=== PATIENT | male | born 1950 | race African-American/Black ===

== ENCOUNTER 2019-04-23 17:38 | Inpatient (IN) | payer BC, OTHER ==
[~2019-04-23] VITALS: Ht 172.7 cm; Wt 87.1 kg
--- NOTE | 2019-04-23 18:00 | NUR ---
Patient to ER bed 3 to gown for evaluation. Side rails up.
[2019-04-23] MEDS ORDERED: POTA10TA15 PO (18:01)
[2019-04-23] MEDS ORDERED: CARV3.1246 PO (18:01)
[2019-04-23] MEDS ORDERED: SPIR25TA PO (18:01)
[2019-04-23] MEDS ORDERED: TAMS-11 PO (18:01)
[2019-04-23] MEDS ORDERED: FURO-150 PO (18:01)
[2019-04-23 18:02] VITALS: BP_SYST 119
[2019-04-23] MEDS ORDERED: WARF3TAB PO (18:02)
--- NOTE | 2019-04-23 18:02 | NUR ---
pt arrives via acls for dizzness and flu like symtoms for approx one week. pt is aao x 4. Currentl c/o nausea. VSS. monitoring engineer placed.
--- NOTE | 2019-04-23 18:08 | NUR ---
ER at bedside examining patient.
[2019-04-23] MEDS ORDERED: KETOROLAC TROMETHAMINE 30 MG VIAL IVP ONE (18:15)
[2019-04-23] MEDS ORDERED: NACL 0.9% 1,000 ML IV ONE (18:15)
[2019-04-23] MEDS ORDERED: ONDANSETRON HCL 4 MG/2 ML VIAL IVP ONE (18:15)
--- NOTE | 2019-04-23 18:25 | NUR ---
medicated the pt w/ Zofran and Toradol per md order. Will reasssess
--- NOTE | 2019-04-23 18:36 | NUR ---
FLU SWAB COLLECTED AND SENT TO LAB
--- NOTE | 2019-04-23 18:50 | NUR ---
Medication reconciliation completed with information provided by pt. Any prior medication reconciliation on file was reviewed and corrected.
[2019-04-23 19:05] LABS: CALCIUM 8.3 mg/dL (8.4-11.0); CREATININE 1.34 mg/dL (0.55-1.30); POTASSIUM 3.9 mmol/L (3.5-5.1)
[2019-04-23 19:08] LABS: HEMATOCRIT 39.3 % (36-54); HEMOGLOBIN 12.9 g/dL (14.0-18.0); MEAN CORPUSCULAR HEMOGLOBIN 27 pg (27-31); MEAN CORPUSCULAR HGB CONC 33 % (32-36); MEAN CORPUSCULAR VOLUME 82 fL (79.0-98.0); PLATELET COUNT (AUTO) 115 K/uL (130-430); RED BLOOD CELL COUNT(AUTO) 4.77 MIL/uL (4.2-6.2); RED CELL DISTRIBUTION WIDTH 15.8 % (9.0-15.0); WHITE BLOOD COUNT (AUTO) 2.5 K/uL (4.8-10.8)
[2019-04-23 19:14] LABS: ALBUMIN 2.6 g/dL (3.4-4.8); TOTAL BILIRUBIN 0.8 mg/dL (0.0-1.0)
--- NOTE | 2019-04-23 19:20 | NUR ---
report given to Baljinder VILLEGAS
[2019-04-23 19:21] LABS: INR 1.3 (0.80-1.20); PROTHROMBIN TIME 12.7 SECS (9.5-12.5)
--- NOTE | 2019-04-23 19:30 | NUR ---
RECEIVED ASLEEP, AROUSABLE, CONFUSED. AFEBRILE, NOT IN ACUTE DISTRESS. NO PAIN OR DISCOMFORT NOTED. AWAITING DISPOSITION. VS ARE OTHERWISE STABLE.
--- NOTE | 2019-04-23 19:40 | NUR ---
PT. ADMITTED TO TELEMETRY UNIT FOR PNEUMONIA, INFLUENZA UNDER THE SERVICE OF . GAVE ADMITTING ORDERS.
[2019-04-23] MEDS ORDERED: VANCOMYCIN HCL 1,000 MG in NS 250 ML IV ONE (19:45)
[2019-04-23] MEDS ORDERED: TEMAZEPAM 15 MG CAPSULE PO PRN (20:00)
[2019-04-23] MEDS ORDERED: ONDANSETRON HCL 4 MG/2 ML VIAL IVP PRN (20:00)
[2019-04-23] MEDS ORDERED: METOCLOPRAMIDE HCL 10 MG/2 ML VIAL IVP PRN (20:00)
--- NOTE | 2019-04-23 20:01 | NUR ---
STATRTED ON LEVAQUIN 750 MG IVPB ORDERED.
[2019-04-23 20:17] LABS: BAND % (MANUAL) 3 % (0-6); BASOPHILS % (MANUAL) 0 % (0-2); EOSINOPHILS % (MANUAL) 0 % (0-7); LYMPHOCYTES % (MANUAL) 27 % (20-46); MONOCYTES % (MANUAL) 10 % (0-11)
--- NOTE | 2019-04-23 21:15 | NUR ---
ASLEEP, NOT IN ANY KIND OF DISTRESS. NO PAIN OR DISCOMFORT NOTED. VS REMAIN STABLE.
[2019-04-23] MEDS ORDERED: VANCOMYCIN HCL 1000 MG/VIAL IV ONE (21:44)
--- NOTE | 2019-04-23 22:50 | NUR ---
TRANSFERRED TO FLOOR VIA ACLS PROTOCOL STABLE. BEDSIDE REPORT GIVEN TO NURSE SILVER.PT. WENT TO ROOM 133-A. TRANSFER UNEVENTFUL.
--- NOTE | 2019-04-23 22:51 | NUR ---
ADMISSION NOTE Received patient from ER via kathy, received report from ROCK VILLEGAS. Patient admitted with diagnosis of PNEUMONIA, INFLUENZA. Patient oriented to hospital routine, call light, toileting and safety-patient verbalized understanding.
--- NOTE | 2019-04-23 22:51 | NUR ---
ADMISSION NOTE Received patient from ER via kathy, received report from NELLY ingram. Patient admitted with diagnosis of PNA, influenza. Patient oriented to hospital routine, call light, toileting and safety-patient verbalized understanding.
[2019-04-23] MEDS ORDERED: *LOVENOX 1MG/KG Q12H/PHARMACY XX ONE (23:00)
[2019-04-23] MEDS ORDERED: IPRATROPIUM/ALBUTEROL SULFATE 3 ML AMPUL.NEB (DUONEB) INH PRN (23:00)
[2019-04-23] MEDS ORDERED: ENOXAPARIN SODIUM 80 MG/0.8 ML SYRINGE SUBCUT SCH (23:00)
[2019-04-23] MEDS ORDERED: MORPHINE 2 MG/ML INJ. SYRINGE IVP PRN (23:00)
[2019-04-23] MEDS: OSELTAMIVIR PHOSPHATE 75 MG CAPSULE PO SCH (23:21)
--- NOTE | 2019-04-23 23:24 | NUR ---
MEDICATION PASS SCHEDULED TAMIFLU AND LOVENOX ADMINISTERED ORDERED. MEDICATIONS AND POTENTIAL SIDE EFFECTS EXPLAINED TO PT, PT VERBALIZED UNDERSTANDING. NO S/S OF DISTRESS. SAFETY PRECAUTIONS MAINTAINED. WILL MONITOR.
[2019-04-23 23:38] VITALS: BP_SYST 132
[2019-04-24] VITALS: BP_SYST 132
--- NOTE | 2019-04-24 01:15 | NUR ---
RN NOTE: PT ASSISTED TO SIT UP IN BED TO USE URINAL. SMALL AMOUNT OF URINE PRODUCED. PT ASSISTED TO LIE DOWN IN BED. NO S/S OF DISTRESS. SAFETY MAINTAINED. CALL LIGHT WITH PT. WILL MONITOR.
[2019-04-24 01:16] VITALS: BP_SYST 131
--- NOTE | 2019-04-24 02:09 | NUR ---
Consultation Paged Reason for Consultation: Elevated Troponin Was consult called: Y Person who was notified: Autumn Consulting Physician: Dr. Oh Operations Examiner Ordering Physician: Dr. Lawler
--- NOTE | 2019-04-24 03:20 | NUR ---
RESTING PT RESTING IN BED, NO S/S OF ACUTE DISTRESS, BREATHING IS EVEN AND UNLABORED TO ROOM AIR, NO SIGN OF PAIN OR DISCOMFORT. SAFETY PRECAUTIONS MAINTAINED. WILL MONITOR.
[2019-04-24 04:09] LABS: BASOPHILS % (AUTO) 0.5 % (0.0-2.0); EOSINOPHILS % (AUTO) 0.2 % (0.0-4.0); HEMATOCRIT 42.7 % (36-54); HEMOGLOBIN 13.8 g/dL (14.0-18.0); LYMPHOCYTES # (AUTO) 0.9 K/uL (1.0-5.5); LYMPHOCYTES % (AUTO) 26.1 % (20.5-51.5); MEAN CORPUSCULAR HEMOGLOBIN 27 pg (27-31); MEAN CORPUSCULAR HGB CONC 32 % (32-36); MEAN CORPUSCULAR VOLUME 84 fL (79.0-98.0); MONOCYTES # (AUTO) 0.3 K/uL (0.0-1.0); MONOCYTES % (AUTO) 9.4 % (1.7-9.3); NEUTROPHILS # (AUTO) 2.1 K/uL (1.8-7.7); NEUTROPHILS % (AUTO) 63.8 % (40.0-70.0); PLATELET COUNT (AUTO) 118 K/uL (130-430); RED BLOOD CELL COUNT(AUTO) 5.11 MIL/uL (4.2-6.2); RED CELL DISTRIBUTION WIDTH 15.7 % (9.0-15.0); WHITE BLOOD COUNT (AUTO) 3.3 K/uL (4.8-10.8)
[2019-04-24 04:28] LABS: ALBUMIN 2.5 g/dL (3.4-4.8); CALCIUM 8.3 mg/dL (8.4-11.0); CREATININE 1.24 mg/dL (0.55-1.30); POTASSIUM 4.1 mmol/L (3.5-5.1); TOTAL BILIRUBIN 0.7 mg/dL (0.0-1.0)
[2019-04-24] MEDS: INSULIN REGULAR, HUMAN 100 UNITS/ML, 10 ML VIAL (humuLIN R) SUBCUT PRN ×4 (06:02→21:48)
--- NOTE | 2019-04-24 06:02 | NUR ---
ACCUCHECK BLOOD SUGAR OF 197, PT REFUSED INSULIN AT THIS TIME STATING "MY BLOOD SUGAR DROPS REALLY FAST, I HAVEN'T EATEN IN 30 HOURS." PT EDUCATED REGARDING GLUCOSE CONTROL, PT VERBALIZED UNDERSTANDING BUT CONTINUED TO REFUSE. WILL MONITOR.
--- NOTE | 2019-04-24 06:45 | NUR ---
CLOSING NOTE PT RESTING IN BED, NO S/S OF ACUTE DISTRESS, BREATHING IS UNLABORED TO ROOM AIR, NO S/S OF PAIN OR DISCOMFORT. SAFETY AND DROPLET PRECAUTIONS HAVE BEEN IN PLACE THROUGHOUT SHIFT. ALL NEEDS MET. WILL ENDORSE TO ONCOMING DAY NURSE.
[2019-04-24 08:00] VITALS: BP_SYST 130
--- NOTE | 2019-04-24 08:00 | NUR ---
ASSUMPTION OF CARE: RECEIVED PT A/A/OX3-4, DX:INADEQUATE VENTILATION, R/T PNEUMONIA/INFLUENZA, VSS, BREATH SOUNDS ARE RHONCHI, BREATHING UNLABORED, AFEBRILE, NO C/O PAIN OR DISCOMFORT, IV SITE INTACT, PATENT, NO REDNESS OR SWELLING, REORIENTED TO UNIT AND CALL LIGHT, INSTRUCTED TO CALL FOR ASSIST BEFORE GETTING OOB, VERBALIZES UNDERSTANDING, URINAL, AND BEDSIDE TABLE PLACED WITHIN REACH, WILL CONT' TO MONITOR AND ASSESS.
--- NOTE | 2019-04-24 08:30 | NUR ---
VISIT: AT BEDSIDE FOR ASSESSMENT OF PT, NEW ORDERS GIVEN, WILL CONT' WITH POC.
[2019-04-24] MEDS ORDERED: APIXABAN 2.5 MG TABLET PO ONE (09:00)
[2019-04-24] MEDS ORDERED: CARVEDILOL 6.25 MG TABLET (COREG) PO ONE (09:00)
[2019-04-24] MEDS ORDERED: VANCOMYCIN HCL 2,000 MG in NS 500 ML IV ONE (09:00)
[2019-04-24] MEDS ORDERED: FUROSEMIDE 20 MG TABLET PO ONE (09:00)
[2019-04-24] MEDS ORDERED: CARVEDILOL 3.125 MG TABLET (COREG) PO SCH (09:00)
[2019-04-24] MEDS ORDERED: FUROSEMIDE 20 MG TABLET PO SCH (09:00)
--- NOTE | 2019-04-24 09:00 | NUR ---
BOOM PUMP OPERATOR: MORNING MEDS GIVEN, PER ORDERED BY Valente, TOLERATED WELL, NO CHANGES NOTED AT THIS TIME, WILL CONT' TO MONITOR AND ASSESS.
[2019-04-24] MEDS: ATORVASTATIN 20 MG TABLET PO SCH (09:12)
[2019-04-24] MEDS: SPIRONOLACTONE 25 MG TABLET (ALDACTONE) PO SCH (09:15)
[2019-04-24] MEDS: OSELTAMIVIR PHOSPHATE 75 MG CAPSULE PO SCH ×2 (09:15→21:46)
[2019-04-24] MEDS: TAMSULOSIN HCL 0.4 MG CAP PO SCH (09:17)
--- NOTE | 2019-04-24 09:48 | NUR ---
Nutrition Update Michael Scale 16 noted. Pt admitted for pneumonia, influenza. Diet: cardiac BMI: 29.4 kg/m2 RD to follow per nutrition care standards.
--- NOTE | 2019-04-24 11:30 | NUR ---
GLUCOSE MONITORING: BLOOD SUGAR PBAIU=598, 6 UNITS REGULAR INSULIN GIVEN SQ, TOLERATED WELL, WILL CONT' TO MONITOR AND ASSESS.
--- NOTE | 2019-04-24 12:30 | NUR ---
VISIT: AT BEDSIDE FOR ASSESSMENT OF PT, NEW ORDER GIVEN, WILL CONT' WITH POC.
[2019-04-24 12:46] VITALS: BP_SYST 128
--- NOTE | 2019-04-24 12:49 | NUR ---
ASSESSMENT AND PLAN: Urinary tract infection, increasing agitation, diabetes, seizure, anemia, schizoaffective disorder, hypercholesterolemia, hypertension, gastroesophageal reflux disease. Continue the patient on oxygen, bronchodilator treatments. Continue on gentle IV hydration. We will correct electrolyte abnormalities. Continue ADA diet and insulin sliding scale. Continue on anticoagulation. We will refer the patient to Psychiatry. We will continue to monitor the patient closely.
--- NOTE | 2019-04-24 12:50 | NUR ---
CONSULTATION PAGED/CALLED Reason for Consultation: [] PNA Person Who was Notified: [] PAGED DIRECTLY Consulting Physician: [] DR DUNN Bundle Wrapper Specialty: [] PULMO Ordering Physician: [] DR NARANJO
[2019-04-24] MEDS ORDERED: WARF10TA43 PO (13:36)
[2019-04-24] MEDS ORDERED: DIGO250T78 PO (13:36)
[2019-04-24] MEDS ORDERED: COR12.5 PO (13:36)
[2019-04-24] MEDS ORDERED: AMIO100T4 PO (13:36)
--- NOTE | 2019-04-24 15:00 | NUR ---
NURSES NOTES: PT REMAINS STABLE, NO S/S OF DISTRESS, NO C/O PAIN, NEEDS MET, CALL LIGHT PLACED WITHIN REACH, WILL CONT' TO MONITOR AND ASSESS.
[2019-04-24 16:30] VITALS: BP_SYST 104
[2019-04-24] MEDS ORDERED: WARFARIN SODIUM 3 MG TABLET PO SCH (18:00)
--- NOTE | 2019-04-24 18:00 | NUR ---
GLUCOSE MONITORING: BLOOD SUGAR XXSTI=585, 2 UNITS REGULAR INSULIN GIVEN SQ, TOLERATED WELL, WILL CONT' TO MONITOR AND ASSESS.
[2019-04-24 20:00] VITALS: BP_SYST 114
--- NOTE | 2019-04-24 20:00 | NUR ---
Pt was received lying in bed fully awake, alert and oriented x4. No c/o pain or discomfort and no acute distress noted at this time. Skin is warm and dry to touch. No signs or symptoms of hypoglycemia or hyperglycemia noted. Saline lock in LAC is without any signs of infiltration. Fall and safety precautions are in place.
[2019-04-24] MEDS: LEVOFLOXACIN 500 MG/D5W 100 ML IV SCH (21:45)
[2019-04-24] MEDS: CARVEDILOL 6.25 MG TABLET (COREG) PO SCH (21:46)
--- NOTE | 2019-04-24 21:48 | NUR ---
Accucheck 173 and 2 units Regular Insulin given SQ. Skin remains warm and dry to touch. Pt ate 1 cup of Jello for HS snack. Fall and safety precautions are in place.
[2019-04-24] MEDS: APIXABAN 2.5 MG TABLET PO SCH (21:50)
[2019-04-25] VITALS: BP_SYST 112
--- NOTE | 2019-04-25 00:30 | NUR ---
Pt is awake and sitting on the edge of his bed. No c/o pain or discomfort.
--- NOTE | 2019-04-25 02:30 | NUR ---
Pt is sleeping without any distress noted. Fall and safety precautions are in place.
--- NOTE | 2019-04-25 04:30 | NUR ---
Pt is sleeping comfortably in bed. Fall and safety precautions are in place.
[2019-04-25 05:59] LABS: INR 1.5 (0.80-1.20); PROTHROMBIN TIME 14.7 SECS (9.5-12.5)
[2019-04-25] MEDS ORDERED: DEXTROSE 50% JECT 50 ML DISP.SYRIN IVP PRN (06:00)
[2019-04-25] MEDS ORDERED: GLUCOSE 15 GM GEL (in 37.5 GM TUBE) PO PRN (06:00)
--- NOTE | 2019-04-25 06:05 | NUR ---
Accuchecks 69 and 66. Pt is fully awake and alert. Skin is warm and dry to touch. Pt declined oral Glucose gel. 1 amp D50W was given IVP. Pt was given 1 cup orange juice per his request.
[2019-04-25 06:06] LABS: ALBUMIN 2.4 g/dL (3.4-4.8); CALCIUM 8.3 mg/dL (8.4-11.0); CREATININE 1.13 mg/dL (0.55-1.30); POTASSIUM 3.7 mmol/L (3.5-5.1); TOTAL BILIRUBIN 0.6 mg/dL (0.0-1.0)
[2019-04-25] MEDS ORDERED: DEXTROSE 50% JECT 50 ML DISP.SYRIN ONE (06:20)
--- NOTE | 2019-04-25 06:20 | NUR ---
Accucheck 131 and skin remains warm and dry to touch. Fall and safety precautions are in place. All pt's needs were attended to. Will endorse to day shift nurse.
[2019-04-25 06:40] LABS: THYROID STIMULATING HORMONE 0.94 uIu/mL (0.36-3.74)
[2019-04-25 06:55] LABS: BASOPHILS % (AUTO) 0.9 % (0.0-2.0); EOSINOPHILS # (AUTO) 0.1 K/uL (0.0-0.4); EOSINOPHILS % (AUTO) 3.2 % (0.0-4.0); HEMATOCRIT 40.4 % (36-54); HEMOGLOBIN 13.2 g/dL (14.0-18.0); LYMPHOCYTES # (AUTO) 1.2 K/uL (1.0-5.5); LYMPHOCYTES % (AUTO) 38.2 % (20.5-51.5); MEAN CORPUSCULAR HEMOGLOBIN 27 pg (27-31); MEAN CORPUSCULAR HGB CONC 33 % (32-36); MEAN CORPUSCULAR VOLUME 82 fL (79.0-98.0); MONOCYTES # (AUTO) 0.5 K/uL (0.0-1.0); MONOCYTES % (AUTO) 17.8 % (1.7-9.3); NEUTROPHILS # (AUTO) 1.2 K/uL (1.8-7.7); NEUTROPHILS % (AUTO) 39.9 % (40.0-70.0); PLATELET COUNT (AUTO) 115 K/uL (130-430); RED BLOOD CELL COUNT(AUTO) 4.93 MIL/uL (4.2-6.2); RED CELL DISTRIBUTION WIDTH 15.7 % (9.0-15.0); WHITE BLOOD COUNT (AUTO) 3.1 K/uL (4.8-10.8)
[2019-04-25 08:05] VITALS: BP_SYST 122
[2019-04-25] MEDS: OSELTAMIVIR PHOSPHATE 75 MG CAPSULE PO SCH ×2 (09:03→20:47)
[2019-04-25] MEDS: CARVEDILOL 6.25 MG TABLET (COREG) PO SCH ×2 (09:03→20:46)
[2019-04-25] MEDS: ATORVASTATIN 20 MG TABLET PO SCH (09:03)
[2019-04-25] MEDS: SPIRONOLACTONE 25 MG TABLET (ALDACTONE) PO SCH (09:04)
[2019-04-25] MEDS: TAMSULOSIN HCL 0.4 MG CAP PO SCH (09:04)
[2019-04-25] MEDS: APIXABAN 2.5 MG TABLET PO SCH ×2 (09:05→20:49)
--- NOTE | 2019-04-25 09:05 | NUR ---
Routine Patient resting quietly in bed with no complain of pain or discomfort. Scheduled medications given per order. Patient stable at this time.
[2019-04-25] MEDS: FUROSEMIDE 20 MG TABLET PO SCH (09:06)
[2019-04-25] MEDS: VANCOMYCIN HCL 1,750 MG in NS 500 ML IV SCH (09:07)
--- NOTE | 2019-04-25 11:37 | NUR ---
Routine Checked blood sugar: 150 mg/dl - no coverage required. Patient resting comfortably in bed with no distress noted. Patient stable.
--- NOTE | 2019-04-25 11:55 | NUR ---
Patient taken to Radiology Dept for CT head.
[2019-04-25 12:00] VITALS: BP_SYST 125
--- NOTE | 2019-04-25 12:00 | NUR ---
REASON FOR CONSULTATION:[facility] WAS CONSULT CALLED?Y PERSON WHO WAS NOTIFIED:[facility] CONSULTING PHYSICIAN:ABDIRIZAK ASHLEY CLARK DRIVER SPECIALTY:NEURO CLARK DRIVER PHONE NUMBER:[phone] REQUESTING PHYSICIAN:KAYLYN JOHNSTON
--- NOTE | 2019-04-25 12:08 | NUR ---
DC PLANNING CHART REVIEWED, PATIENT LIVE WITH SPOUSE AT [facility]. ADLS INDEPENDENT, DME- NONE, TRANSPORTATION SON'S CAR, PRIMARY CONTACT- SMITH MYERS [phone]. DCP: HOME WITH SPOUSE. JCJason RN CM
--- NOTE | 2019-04-25 12:10 | NUR ---
Patient returned to unit in stable condition.
--- NOTE | 2019-04-25 15:16 | NUR ---
Dietitian Recommendations * Recommend cardiac, CCHO high carb-75 diet w/ Glucerna TID (ONS provides 660 kcal/day, 30 gm protein/day) LP, RD Please refer to Nutrition Assessment for details. Addendum: 04/25/19 at [address] Amended: Links added.
[2019-04-25 16:30] VITALS: BP_SYST 123
--- NOTE | 2019-04-25 18:03 | NUR ---
Routine Checked blood sugar: 167 mg/dl - covered per sliding scale; at bedside. Patient stable throughout shift.
[2019-04-25] MEDS: INSULIN REGULAR, HUMAN 100 UNITS/ML, 10 ML VIAL (humuLIN R) SUBCUT PRN ×2 (18:11→20:51)
[2019-04-25 19:00] VITALS: BP_SYST 129
--- NOTE | 2019-04-25 19:15 | NUR ---
change of shift.pt.presents isolation status;droplet;influenzae a+.pt.presents quiescent affect;calm,resting.general status stable.respiratory status stable;unlabored@room air.call light/telephone w/in reach of the pt.
--- NOTE | 2019-04-25 20:00 | NUR ---
pt.assessed.v/s assessed:values w/in normal limits.no c/o pain.nausea.i have apprised the pt.that i may provide snacks/beverages w/in the shift.no requests posited@this hour.general status stable;respiratory status stable;unlabored@room air:02-sat%=96%i inquired if the pt is ambulatory the pt.stated he cannot ambulate safely:lower extremity weakness.pt.utilizing the urinal w/in reach of the pt.call light/telephone w/in reach of the pt.
--- NOTE | 2019-04-25 20:30 | NUR ---
i have assessed the blood glucose:value;160mg dl. i have apprised the pt. of the value.
[2019-04-25] MEDS: LEVOFLOXACIN 500 MG/D5W 100 ML IV SCH (20:46)
--- NOTE | 2019-04-25 21:00 | NUR ---
2100p medications administered.i have administered insulin;regular:2-units.pt.had requested snacks/beverages.i have provided the food items.
--- NOTE | 2019-04-25 22:00 | NUR ---
pt.assessed.pt.presents quiescent affect;calm,resting.no c/o pain,nausea.i have attended to the urinal:measured/cleaned placed w/in reach of the pt.pt.capable to reposition self.general status stable.respiratory status stable;unlabored:02-sat%=96%.call light/telephone w/in reach of the pt.
--- NOTE | 2019-04-26 | NUR ---
pt.assessed,v/s assessed;values wnl.no c/o pain,nausea.i have attended to the urinal:measured/cleaned.placed w/in reach of the pt. pt.general status stable.respiratory status stable:02-sat%=96%.call light/telephone w/in reach of the pt.
[2019-04-26 00:15] VITALS: BP_SYST 113
--- NOTE | 2019-04-26 02:00 | NUR ---
pt.assessed.pt.presents quiescent affect;calm,somnolent.i have attended to the urinal;measured/cleaned placed w/in reach of the pt. general status stable.respiratory status stable;unlabored:02-SAT%=96%.call light/telephone w/in reach of the pt.
--- NOTE | 2019-04-26 04:00 | NUR ---
pt.assessed.pt.presents quiescent affect;awake;resting.i have attended to the urinal;measured/cleaned placed w/in reach of the pt.no c/o pain,nausea.pt.presents no requests posited@this hour.general status stable.respiratory status stable;unlabored.call light/telephone w/in reach of the pt.o2-sat%=96%.
--- NOTE | 2019-04-26 05:52 | NUR ---
pt.assessed.pt. prersents quiescent affect;calm resting no c/o pain,nausea.pt.requested a snack.i have provided jello x2 cups. i have assessed the blood glucose:value;103mg/dl.respiratory status stable;unlabored;02-st%=96%.I HAVE AtTEnded TO the URINAL/MEASURED/CLKENED PALCED W/IMN REaCH OF TH PT.CALL LiGHT/TELePHONE W/IN REACH OF THE PT.i have weighed the pt.2/t chf/lasix administration.
[2019-04-26 07:12] LABS: INR 1.5 (0.80-1.20); PROTHROMBIN TIME 14.6 SECS (9.5-12.5)
--- NOTE | 2019-04-26 07:50 | NUR ---
Report received from night team registered nurse. Patient awake and seated on bed with feet on the floor. Assist patient to restroom with walker at this time. Patient says he is feeling better. Everton Medina
[2019-04-26 09:38] VITALS: BP_SYST 137
[2019-04-26 10:00] VITALS: BP_SYST 137
--- NOTE | 2019-04-26 11:00 | NUR ---
Patient sister calls to inquire about his status. Discussion deferred to patient. Phone given to patient to discuss his healthcare. Everton Medina RN
[2019-04-26] MEDS: ATORVASTATIN 20 MG TABLET PO SCH (11:12)
[2019-04-26] MEDS: FUROSEMIDE 20 MG TABLET PO SCH (11:12)
[2019-04-26] MEDS: OSELTAMIVIR PHOSPHATE 75 MG CAPSULE PO SCH ×2 (11:12→20:50)
[2019-04-26] MEDS: VANCOMYCIN HCL 1,750 MG in NS 500 ML IV SCH (11:12)
[2019-04-26] MEDS: TAMSULOSIN HCL 0.4 MG CAP PO SCH (11:12)
[2019-04-26] MEDS: CARVEDILOL 6.25 MG TABLET (COREG) PO SCH ×2 (11:13→20:58)
[2019-04-26] MEDS: SPIRONOLACTONE 25 MG TABLET (ALDACTONE) PO SCH (11:13)
[2019-04-26] MEDS: APIXABAN 2.5 MG TABLET PO SCH ×2 (11:14→21:02)
[2019-04-26 12:00] VITALS: BP_SYST 120
--- NOTE | 2019-04-26 15:00 | NUR ---
Removal of intravenous catheter from 18 gauge in left antecubital site and insertion of 24 gauge in left forearm. Patient tolerates well. Intact 18 gauge catheter tip noted. Everton Medina
[2019-04-26 15:23] LABS: INR 1.3 (0.80-1.20); PROTHROMBIN TIME 13.3 SECS (9.5-12.5)
--- NOTE | 2019-04-26 16:50 | NUR ---
Patient visitor at bedside departs. Urinal and call balderrama within reach. Clear path and adequate lighting with bed to low position. Everton Medina RN Addendum: 04/26/19 at 1918 by [employer] utility bill complaints investigator clear path to restroom from patient bed
[2019-04-26 16:52] VITALS: BP_SYST 118
[2019-04-26] MEDS: INSULIN REGULAR, HUMAN 100 UNITS/ML, 10 ML VIAL (humuLIN R) SUBCUT PRN (18:04)
--- NOTE | 2019-04-26 19:07 | NUR ---
Tolerates one hundred percent of dinner well. Patient watching television. Even unlabored respirations. Pacing on monitor. Endorsement to night team registered nurse. Patient needs met. Everton Medina RN
[2019-04-26 19:55] VITALS: BP_SYST 117
[2019-04-26] MEDS: LEVOFLOXACIN 500 MG/D5W 100 ML IV SCH (21:28)
[2019-04-27 06:55] LABS: BASOPHILS % (AUTO) 0.7 % (0.0-2.0); EOSINOPHILS # (AUTO) 0.2 K/uL (0.0-0.4); EOSINOPHILS % (AUTO) 6.2 % (0.0-4.0); HEMOGLOBIN 13.6 g/dL (14.0-18.0); LYMPHOCYTES # (AUTO) 1.2 K/uL (1.0-5.5); LYMPHOCYTES % (AUTO) 31.9 % (20.5-51.5); MEAN CORPUSCULAR HEMOGLOBIN 27 pg (27-31); MEAN CORPUSCULAR HGB CONC 33 % (32-36); MEAN CORPUSCULAR VOLUME 82 fL (79.0-98.0); MONOCYTES # (AUTO) 0.5 K/uL (0.0-1.0); MONOCYTES % (AUTO) 13.7 % (1.7-9.3); NEUTROPHILS # (AUTO) 1.7 K/uL (1.8-7.7); NEUTROPHILS % (AUTO) 47.5 % (40.0-70.0); PLATELET COUNT (AUTO) 137 K/uL (130-430); RED BLOOD CELL COUNT(AUTO) 5.02 MIL/uL (4.2-6.2); RED CELL DISTRIBUTION WIDTH 15.8 % (9.0-15.0); WHITE BLOOD COUNT (AUTO) 3.7 K/uL (4.8-10.8)
[2019-04-27 07:17] LABS: INR 1.3 (0.80-1.20)
[2019-04-27 07:18] LABS: ALBUMIN 2.4 g/dL (3.4-4.8); CREATININE 1.18 mg/dL (0.55-1.30); POTASSIUM 3.4 mmol/L (3.5-5.1); TOTAL BILIRUBIN 0.6 mg/dL (0.0-1.0)
[2019-04-27 07:24] VITALS: BP_SYST 112
--- NOTE | 2019-04-27 07:50 | NUR ---
INITIAL NOTE RECEIVED PT IN BED, NO S/S OF DISTRESS OR SOB NOTED,PT HAS NO C/O PAIN AT THIS TIME, PT IN STABLE CONDITION, PT AAOX4, VERBAL, IV CATHETER PATENT, SALINE LOCK, NO SIGNS OF INFECTION OR INFILTRATION NOTED. BED AT LOWEST POSITION, CALL LIGHT WITHIN REACH, WILL CONTINUE TO MONITOR PT FOR ANY CHANGES, FALL AND SAFETY PRECAUTIONS IN PLACE. PT ON ISOLATION PRECAUTIONS. PT HAS BILATERAL SCD'S IN PLACE.
[2019-04-27] MEDS ORDERED: IPRA3AMP9 INH (08:48)
[2019-04-27] MEDS ORDERED: LIP20 PO (08:48)
[2019-04-27] MEDS ORDERED: APIX2.5T PO (08:48)
[2019-04-27] MEDS ORDERED: LACT1CAP72 PO (08:51)
[2019-04-27] MEDS ORDERED: METR500T PO (08:51)
[2019-04-27] MEDS ORDERED: LEVO500T89 PO (08:51)
[2019-04-27] MEDS ORDERED: VANCOMYCIN HCL 2,000 MG in NS 500 ML IV SCH (09:00)
[2019-04-27] MEDS: OSELTAMIVIR PHOSPHATE 75 MG CAPSULE PO SCH (09:38)
[2019-04-27] MEDS: SPIRONOLACTONE 25 MG TABLET (ALDACTONE) PO SCH (09:38)
[2019-04-27] MEDS: ATORVASTATIN 20 MG TABLET PO SCH (09:39)
[2019-04-27] MEDS: TAMSULOSIN HCL 0.4 MG CAP PO SCH (09:39)
[2019-04-27] MEDS: FUROSEMIDE 20 MG TABLET PO SCH (09:39)
[2019-04-27] MEDS: CARVEDILOL 6.25 MG TABLET (COREG) PO SCH (09:40)
[2019-04-27] MEDS: APIXABAN 2.5 MG TABLET PO SCH (09:40)
--- NOTE | 2019-04-27 10:00 | NUR ---
IV PLACEMENT: # 22 gauge angiocath placed to left ac. Use of asceptic technique. Opsite placed over site. Blood return noted.Flushed with 10 cc of normal saline. No evidence of infiltration noted. Patient tolerated. Removed iv catheter on left forearm, infiltrated, catheter intact, no bleeding noted, dressing in place.
--- NOTE | 2019-04-27 10:14 | NUR ---
Discharge Planning Received order for DC to SNF. Patient prefers to go home. Patient is ambulating with FWW and has and sons to assist at home. Agrees with home health. Received order for DC home with safety eval and PT. Phoned Laura Gil CM, direct number is [phone] f [phone]. Faxed patient information and order for HH. She will arrange and return call with name of agency. Addendum: 04/27/19 at 1024 by Aditi Fontaine LCSW Laura ESPINOZA arranged [facility] [phone]
--- NOTE | 2019-04-27 10:30 | NUR ---
ROUNDS PT IN BED, NO S/S OF DISTRESS OR SOB NOTED, PT HAS NO C/O PAIN AT THIS TIME, PT IN STABLE, PT RESTING COMFORTABLY, WILL CONTINUE TO MONITOR PT FOR ANY CHANGES.
[2019-04-27] MEDS: INSULIN REGULAR, HUMAN 100 UNITS/ML, 10 ML VIAL (humuLIN R) SUBCUT PRN (12:06)
[2019-04-27 12:49] VITALS: BP_SYST 125
--- NOTE | 2019-04-27 12:56 | NUR ---
ROUNDS PT IN BED, RESTING COMFORTABLY, NO S/S OF DISTRESS OR SOB NOTED, PT HAS NO C/O PAIN AT THIS TIME, PT IN STABLE CONDITION. WILL CONTINUE TO MONITOR PT FOR ANY CHANGES.
[2019-04-27 13:55] VITALS: BP_SYST 122
--- NOTE | 2019-04-27 14:26 | NUR ---
sD/C Patient Patient given medication reconciliation form and D/C instructions. Exit Care provided. Patient verbalized understanding. MD discussed with patient the results and treatment provided. Ambulatory with assist for discharge to home. Patient in stable condition, ID band removed. IV catheter removed, intact and dressing applied, no active bleeding. E-prescriptions sent to pharmacy. Patient educated on pain management. All belongings sent with patient.
--- NOTE | 2019-04-30 13:25 | NUR ---
SS NOTES/DISCHARGE FOLLOW UP CALL: SPEECH AND HEARING DIRECTOR phoned pt. Pt stated he is doing okay but was concern about his medication that Dr. Ramey had stopped while in the hospital. Dr. Ramey recommended to discontinue his comaudine and will have a replacement, but per pt he was never ordered for the replacement. SPEECH AND HEARING DIRECTOR provided patient Dr. Ramey's patient and encouraged for him to call MD now. Pt also has an appointment with PCP tomorrow and encouraged pt to bring discharge instructions and new/old meds. There was no hospice that contacted pt, called [facility] and sales and marketing representative stated pt never answered phone and will attempt to call pt today to schedule for assessment tomorrow. SPEECH AND HEARING DIRECTOR provided pt with SS phone number. SS will attempt to follow-up if HH was set up.
== END 2019-04-27 14:11 | disposition home health service (06) | DRG 871 ==
LOC: SED 17:38 → STU 19:52
PROVIDERS: ADMIT Internal Medicine Hospice and Palliative Medicine; ATTEND Internal Medicine Hospice and Palliative Medicine
DX: A41.9 Sepsis, unspecified organism (principal); J12.9 Viral pneumonia, unspecified; J10.08 Influenza due to other identified influenza virus with other specified pneumonia; I21.4 Non-ST elevation (NSTEMI) myocardial infarction; I13.0 Hypertensive heart and chronic kidney disease with heart failure and stage 1 through stage 4 chronic kidney disease, or unspecified chronic kidney disease; E87.1 Hypo-osmolality and hyponatremia; I42.0 Dilated cardiomyopathy; R79.1 Abnormal coagulation profile; I50.9 Heart failure, unspecified; E11.22 Type 2 diabetes mellitus with diabetic chronic kidney disease; R41.3 Other amnesia; D69.6 Thrombocytopenia, unspecified; R26.2 Difficulty in walking, not elsewhere classified; E11.40 Type 2 diabetes mellitus with diabetic neuropathy, unspecified; E11.65 Type 2 diabetes mellitus with hyperglycemia; N18.2 Chronic kidney disease, stage 2 (mild); Z83.3 Family history of diabetes mellitus; Z82.49 Family history of ischemic heart disease and other diseases of the circulatory system; Z86.73 Personal history of transient ischemic attack (TIA), and cerebral infarction without residual deficits; Z95.0 Presence of cardiac pacemaker; Z79.01 Long term (current) use of anticoagulants; Z79.899 Other long term (current) drug therapy
CPT/HCPCS: 36415; 70450-TC; 71045; 80053; 80061; 80202-TC; 82962; 83036; 83880; 84443-TC; 84484; 85007; 85025; 85027; 85610-TC; 85730-TC; 86710; 87040-TC; 93005; 93306; 94760; 99285; G0378; G9035; J1650; J1815; J1885; J1956; J2405; J3370; J7040; J7050

== ENCOUNTER 2021-05-19 10:10 | Inpatient (IN) | payer OTHER, SELFPAY ==
[~2021-05-19] VITALS: Ht 188 cm; Wt 70.8 kg
[~2021-05-19 10:10] MED LIST: AMIO100T4 PO; APIX2.5T PO; COR12.5 PO; DIGO250T2 PO; FURO-150 PO; IPRA3AMP9 INH; LACT1CAP72 PO; LEVO500T90 PO; LIP20 PO; METR500T PO; POTA10TA15 PO; SPIR25TA PO; TAMS-11 PO
[2021-05-19 10:13] VITALS: BP_SYST 92
[2021-05-19] MEDS ORDERED: ASPIRIN 81 MG TAB.CHEW PO ONE (10:30)
[2021-05-19] MEDS ORDERED: FINA5TAB3 PO (10:57)
[2021-05-19] MEDS ORDERED: SACU1TAB PO (10:57)
[2021-05-19] MEDS ORDERED: HYDR-3917 PO (10:57)
[2021-05-19] MEDS ORDERED: INSU100V9 SQ (10:57)
[2021-05-19] MEDS ORDERED: CYM30 PO (10:57)
[2021-05-19] MEDS ORDERED: GABA-533 PO (10:57)
[2021-05-19] MEDS ORDERED: INSU100V SQ (10:57)
[2021-05-19 11:15] LABS: HEMOGLOBIN 13.5 g/dL (14.0-18.0); MEAN CORPUSCULAR VOLUME 82 fL (79.0-98.0); MONOCYTES # (AUTO) 0.4 K/uL (0.0-1.0); WHITE BLOOD COUNT (AUTO) 6.7 K/uL (4.8-10.8)
[2021-05-19] MEDS ORDERED: NACL 0.9% 1,000 ML IV ONE (11:15)
[2021-05-19 11:17] LABS: BASOPHILS % (AUTO) 0.5 % (0.0-2.0); EOSINOPHILS % (AUTO) 0.4 % (0.0-4.0); LYMPHOCYTES % (AUTO) 15.2 % (20.5-51.5); MEAN CORPUSCULAR HEMOGLOBIN 27 pg (27-31); MEAN CORPUSCULAR HGB CONC 33 % (32-36); MONOCYTES % (AUTO) 5.8 % (1.7-9.3); NEUTROPHILS # (AUTO) 5.2 K/uL (1.8-7.7); NEUTROPHILS % (AUTO) 78.1 % (40.0-70.0); PLATELET COUNT (AUTO) 230 K/uL (130-430); RED BLOOD CELL COUNT(AUTO) 5.02 MIL/uL (4.2-6.2); RED CELL DISTRIBUTION WIDTH 15.1 % (9.0-15.0)
[2021-05-19 11:22] LABS: ANION GAP 14 (5-15); CALCIUM 9.2 mg/dL (8.4-11.0); CHLORIDE 97 mmol/L (98-107); CREATININE 1.91 mg/dL (0.55-1.30); GLUCOSE 149 mg/dL (70-99); POTASSIUM 3.8 mmol/L (3.5-5.1); SODIUM SERUM 135 mmol/L (136-145); UREA NITROGEN, BLOOD 21 mg/dL (8-21)
[2021-05-19 11:30] LABS: ALANINE AMINOTRANSFERASE 14 U/L (12-78); ALBUMIN 3.3 g/dL (3.4-4.8); ASPARTATE AMINOTRANSFERASE 18 U/L (10-37); TOTAL BILIRUBIN 0.3 mg/dL (0.0-1.0)
[2021-05-19 13:08] LABS: INR 1.2 (0.80-1.20); PROTHROMBIN TIME 11.6 SECS (9.5-12.5)
[2021-05-19 13:56] VITALS: BP_SYST 129
[2021-05-19 16:11] VITALS: BP_SYST 125
[2021-05-19 20:00] VITALS: BP_SYST 107
[2021-05-19] MEDS: INSULIN LISPRO SLIDING SCALE 100 UNITS/ML VIAL (humaLOG) SUBCUT PRN (20:39)
[2021-05-19] MEDS ORDERED: NALOXONE HCL 0.4 MG/ML AMP (NARCAN) IVP PRN ×3 (21:45→22:00)
[2021-05-19] MEDS ORDERED: HYDROcodone/ACETAMIN 5-325 MG TAB (NORCO/ VICODIN) PO PRN ×2 (21:45→22:00)
[2021-05-19] MEDS ORDERED: IPRATROPIUM/ALBUTEROL SULFATE 3 ML AMPUL.NEB (DUONEB) INH PRN (21:45)
[2021-05-19] MEDS ORDERED: INSULIN LISPRO SLIDING SCALE 100 UNITS/ML VIAL (humaLOG) SQ PRN (21:45)
[2021-05-19] MEDS: CARVEDILOL 12.5 MG TABLET (COREG) PO SCH (21:57)
[2021-05-19] MEDS ORDERED: GABAPENTIN 400 MG CAPSULE PO SCH (21:58)
[2021-05-19] MEDS ORDERED: HYDROcodone/ACETAMIN 10-325 MG TAB PO PRN (22:00)
[2021-05-19] MEDS ORDERED: ACETAMINOPHEN 325 MG TABLET PO PRN (22:00)
[2021-05-19] MEDS ORDERED: ONDANSETRON HCL 4 MG/2 ML VIAL IVP PRN (22:00)
[2021-05-19] MEDS ORDERED: LORazepam 2 MG/ML VIAL IVP PRN (22:00)
[2021-05-19] MEDS: SACUBITRIL/VALSARTAN 24 MG-26 MG 1 TABLET PO SCH (22:01)
[2021-05-19 22:17] VITALS: BP_SYST 125
[2021-05-19] MEDS ORDERED: CARVEDILOL 12.5 MG TABLET (COREG) ONE (22:45)
[2021-05-19] MEDS ORDERED: APIXABAN 2.5 MG TABLET ONE (22:45)
[2021-05-19] MEDS ORDERED: levoFLOXacin 250 MG TABLET ONE (22:47)
[2021-05-19] MEDS ORDERED: metroNIDAZOLE 500 MG TABLET PO ONE (23:00)
[2021-05-19] MEDS ORDERED: GABAPENTIN 400 MG CAPSULE PO ONE (23:00)
[2021-05-19] MEDS ORDERED: SACUBITRIL/VALSARTAN 24 MG-26 MG 1 TABLET PO ONE (23:00)
[2021-05-19] MEDS: NORMAL SALINE 5 ML DISP.SYRIN IVF SCH ×2 (23:06)
[2021-05-19] MEDS: APIXABAN 2.5 MG TABLET PO SCH (23:10)
[2021-05-19] MEDS: metroNIDAZOLE 500 MG TABLET PO SCH (23:11)
[2021-05-19] MEDS ORDERED: levoFLOXacin 500 MG TABLET ONE (23:25)
[2021-05-19] MEDS: levoFLOXacin 500 MG TABLET PO SCH (23:26)
[2021-05-20] VITALS: BP_SYST 102
[2021-05-20] MEDS: INSULIN LISPRO SLIDING SCALE 100 UNITS/ML VIAL (humaLOG) SUBCUT PRN ×4 (06:27→23:02)
[2021-05-20] MEDS: metroNIDAZOLE 500 MG TABLET PO SCH ×3 (06:27→22:22)
[2021-05-20] MEDS: NORMAL SALINE 5 ML DISP.SYRIN IVF SCH ×6 (06:29→22:14)
[2021-05-20 07:09] LABS: BASOPHILS # (AUTO) 0.1 K/uL (0.0-0.2); EOSINOPHILS # (AUTO) 0.1 K/uL (0.0-0.4); HEMATOCRIT 34.7 % (36-54); HEMOGLOBIN 11.6 g/dL (14.0-18.0); LYMPHOCYTES # (AUTO) 1.2 K/uL (1.0-5.5); LYMPHOCYTES % (AUTO) 19.8 % (20.5-51.5); MEAN CORPUSCULAR HEMOGLOBIN 27 pg (27-31); MEAN CORPUSCULAR HGB CONC 34 % (32-36); MEAN CORPUSCULAR VOLUME 80 fL (79.0-98.0); MONOCYTES # (AUTO) 0.6 K/uL (0.0-1.0); MONOCYTES % (AUTO) 9.3 % (1.7-9.3); NEUTROPHILS # (AUTO) 4.3 K/uL (1.8-7.7); NEUTROPHILS % (AUTO) 68.9 % (40.0-70.0); PLATELET COUNT (AUTO) 194 K/uL (130-430); RED BLOOD CELL COUNT(AUTO) 4.35 MIL/uL (4.2-6.2); RED CELL DISTRIBUTION WIDTH 15.4 % (9.0-15.0); WHITE BLOOD COUNT (AUTO) 6.3 K/uL (4.8-10.8)
[2021-05-20 08:09] VITALS: BP_SYST 105
[2021-05-20 08:11] LABS: ALANINE AMINOTRANSFERASE 11 U/L (12-78); ALBUMIN 2.8 g/dL (3.4-4.8); ANION GAP 12 (5-15); ASPARTATE AMINOTRANSFERASE 13 U/L (10-37); CALCIUM 8.5 mg/dL (8.4-11.0); CHLORIDE 101 mmol/L (98-107); CREATININE 1.53 mg/dL (0.55-1.30); GLUCOSE 188 mg/dL (70-99); PHOSPHORUS 2.7 mg/dL (2.7-4.5); POTASSIUM 3.1 mmol/L (3.5-5.1); SODIUM SERUM 137 mmol/L (136-145); TOTAL BILIRUBIN 0.5 mg/dL (0.0-1.0); UREA NITROGEN, BLOOD 18 mg/dL (8-21)
[2021-05-20] MEDS: FINASTERIDE 5 MG TABLET (PROSCAR) PO SCH (10:26)
[2021-05-20] MEDS: GABAPENTIN 300 MG CAPSULE PO SCH ×2 (10:26→22:12)
[2021-05-20] MEDS: TAMSULOSIN HCL 0.4 MG CAP PO SCH (10:26)
[2021-05-20] MEDS: FUROSEMIDE 20 MG TABLET PO SCH (10:28)
[2021-05-20] MEDS: DULoxetine HCL 30 MG CAPSULE.DR (CYMBALTA) PO SCH (10:29)
[2021-05-20] MEDS: ATORVASTATIN 20 MG TABLET PO SCH (10:29)
[2021-05-20] MEDS: AMIODARONE HCL 200 MG TABLET PO SCH (10:29)
[2021-05-20] MEDS: LACTOBACILLUS RHAMNOSUS GG 1 CAP CAPSULE PO SCH (10:30)
[2021-05-20] MEDS: SPIRONOLACTONE 25 MG TABLET (ALDACTONE) PO SCH (10:30)
[2021-05-20] MEDS: CARVEDILOL 12.5 MG TABLET (COREG) PO SCH ×2 (10:30→22:22)
[2021-05-20] MEDS: POTASSIUM CHLORIDE 10 MEQ TAB.PRT.SR PO SCH (10:31)
[2021-05-20] MEDS: DIGOXIN 0.25 MG TABLET PO SCH (10:31)
[2021-05-20] MEDS: APIXABAN 2.5 MG TABLET PO SCH ×2 (10:33→22:39)
[2021-05-20] MEDS: SACUBITRIL/VALSARTAN 24 MG-26 MG 1 TABLET PO SCH ×2 (10:36→21:00)
[2021-05-20 10:43] LABS: FREE T4 (FREE THYROXINE) 1.5 ng/dl (0.8-1.5); THYROID STIMULATING HORMONE 0.21 uIu/mL (0.36-3.74)
[2021-05-20 12:30] VITALS: BP_SYST 118; BP_SYST 153
[2021-05-20 16:17] VITALS: BP_SYST 121
[2021-05-20] MEDS ORDERED: INSULIN GLARGINE 100 UNITS/ML 10 ML VIAL SQ SCH (21:00)
[2021-05-20] MEDS: levoFLOXacin 500 MG TABLET PO SCH (22:12)
[2021-05-20 23:19] VITALS: BP_SYST 101
[2021-05-21] VITALS: BP_SYST 110
[2021-05-21] MEDS: metroNIDAZOLE 500 MG TABLET PO SCH (06:01)
[2021-05-21] MEDS: NORMAL SALINE 5 ML DISP.SYRIN IVF SCH ×3 (06:01→12:08)
[2021-05-21] MEDS: INSULIN LISPRO SLIDING SCALE 100 UNITS/ML VIAL (humaLOG) SUBCUT PRN ×2 (06:13→12:14)
[2021-05-21 08:36] VITALS: BP_SYST 138
[2021-05-21] MEDS: LACTOBACILLUS RHAMNOSUS GG 1 CAP CAPSULE PO SCH (09:04)
[2021-05-21] MEDS: APIXABAN 2.5 MG TABLET PO SCH (09:04)
[2021-05-21] MEDS: DULoxetine HCL 30 MG CAPSULE.DR (CYMBALTA) PO SCH (09:05)
[2021-05-21] MEDS: FINASTERIDE 5 MG TABLET (PROSCAR) PO SCH (09:05)
[2021-05-21] MEDS: SPIRONOLACTONE 25 MG TABLET (ALDACTONE) PO SCH (09:05)
[2021-05-21] MEDS: TAMSULOSIN HCL 0.4 MG CAP PO SCH (09:06)
[2021-05-21] MEDS: CARVEDILOL 12.5 MG TABLET (COREG) PO SCH (09:06)
[2021-05-21] MEDS: DIGOXIN 0.25 MG TABLET PO SCH (09:07)
[2021-05-21] MEDS: FUROSEMIDE 20 MG TABLET PO SCH (09:07)
[2021-05-21] MEDS: AMIODARONE HCL 200 MG TABLET PO SCH (09:08)
[2021-05-21] MEDS: POTASSIUM CHLORIDE 10 MEQ TAB.PRT.SR PO SCH (09:08)
[2021-05-21] MEDS: GABAPENTIN 300 MG CAPSULE PO SCH (09:09)
[2021-05-21] MEDS: ATORVASTATIN 20 MG TABLET PO SCH (09:09)
[2021-05-21] MEDS ORDERED: POTASSIUM CHLORIDE 20 MEQ TAB.PRT.SR PO ONE (10:00)
[2021-05-21 10:53] LABS: ANION GAP 9 (5-15); CALCIUM 9.2 mg/dL (8.4-11.0); CHLORIDE 102 mmol/L (98-107); CREATININE 1.52 mg/dL (0.55-1.30); GLUCOSE 227 mg/dL (70-99); SODIUM SERUM 139 mmol/L (136-145); UREA NITROGEN, BLOOD 16 mg/dL (8-21)
[2021-05-21] MEDS ORDERED: FURO-150 PO (11:50)
[2021-05-21] MEDS: SACUBITRIL/VALSARTAN 24 MG-26 MG 1 TABLET PO SCH (12:18)
[2021-05-21 13:01] VITALS: BP_SYST 127
[2021-05-21 13:36] VITALS: BP_SYST 127
[2021-05-22] MEDS ORDERED: TAMSULOSIN HCL 0.4 MG CAP PO SCH (09:00)
[2021-05-22] MEDS ORDERED: FUROSEMIDE 20 MG TABLET PO SCH (09:00)
== END 2021-05-21 14:40 | disposition home or self-care (01) | DRG 73 ==
LOC: SED 10:10 → STU 12:48
PROVIDERS: ADMIT Internal Medicine Hospice and Palliative Medicine; ATTEND Internal Medicine Hospice and Palliative Medicine
PROC: 4B02XTZ Measurement of Cardiac Defibrillator, External Approach (ICD-10-PCS; principal; 2021-05-21)
DX: G90.8 Other disorders of autonomic nervous system (principal); N17.0 Acute kidney failure with tubular necrosis; I42.0 Dilated cardiomyopathy; E11.42 Type 2 diabetes mellitus with diabetic polyneuropathy; E78.00 Pure hypercholesterolemia, unspecified; N40.0 Benign prostatic hyperplasia without lower urinary tract symptoms; I11.0 Hypertensive heart disease with heart failure; I50.9 Heart failure, unspecified; F32.A Depression, unspecified; E87.6 Hypokalemia; I48.91 Unspecified atrial fibrillation; E11.29 Type 2 diabetes mellitus with other diabetic kidney complication; Z20.822 Contact with and (suspected) exposure to COVID-19; Z95.810 Presence of automatic (implantable) cardiac defibrillator; Z79.2 Long term (current) use of antibiotics; Z79.01 Long term (current) use of anticoagulants; Z79.4 Long term (current) use of insulin; Z79.899 Other long term (current) drug therapy; Z88.0 Allergy status to penicillin
CPT/HCPCS: 36415; 70450-TC; 71045; 76376; 80048; 80053; 82962; 83735; 83880; 84100; 84439; 84443; 84484; 85025; 85379; 85610-TC; 85730-TC; 93306; 93880; 96360; 96361; 99285; G0378

== ENCOUNTER 2021-12-12 23:54 | Inpatient (IN) | payer OTHER ==
[~2021-12-12] VITALS: Ht 185.4 cm; Wt 95.8 kg
[~2021-12-12 23:54] MED LIST changes: +CYM30 PO; +FINA5TAB3 PO; +GABA-533 PO; +HYDR-3917 PO; +INSU100V SQ; +INSU100V9 SQ; +LEVO-62 PO; -LEVO500T90 PO; +SACU1TAB PO
--- NOTE | 2021-12-13 | NUR ---
PATIENT BIBA FOR C/O ALTERED. PATIENT'S INITIAL BLOOD SUGAR ON-SCENE WAS 49. FAMILY STATES THAT THEY SAW PATIENT TAKE INSULIN BUT UNSURE IF HE ATE ANYTHING AFTERWARD. INITIAL INSULIN AT HOSPITAL, 34. PATIENT GIVEN ORANGE JUICE AND PLACED IN BED [address] GOLDBERG AT BEDSIDE.
--- NOTE | 2021-12-13 00:04 | NUR ---
ER at bedside examining patient.
--- NOTE | 2021-12-13 00:05 | NUR ---
# 20 gauge angiocath placed to right hand. Use of asceptic technique. Opsite placed over site. Blood return noted. Blood for lab drawn from site. Flushed with 10 cc of normal saline. No evidence of infiltration noted. Patient tolerated well.
[2021-12-13 00:07] VITALS: BP_SYST 136
--- NOTE | 2021-12-13 00:10 | NUR ---
Urine collected and sent to lab.
[2021-12-13] MEDS: D10W 1,000 ML IV SCH ×3 (00:15→20:00)
--- NOTE | 2021-12-13 00:19 | NUR ---
X-Ray being done at bedside.
[2021-12-13 00:26] LABS: BASOPHILS # (AUTO) 0.1 K/uL (0.0-0.2); BASOPHILS % (AUTO) 0.9 % (0.0-2.0); EOSINOPHILS % (AUTO) 0.6 % (0.0-4.0); HEMATOCRIT 41.5 % (36-54); LYMPHOCYTES # (AUTO) 1.1 K/uL (1.0-5.5); LYMPHOCYTES % (AUTO) 14.4 % (20.5-51.5); MEAN CORPUSCULAR HEMOGLOBIN 26 pg (27-31); MEAN CORPUSCULAR HGB CONC 34 % (32-36); MEAN CORPUSCULAR VOLUME 78 fL (79.0-98.0); MONOCYTES # (AUTO) 0.6 K/uL (0.0-1.0); MONOCYTES % (AUTO) 7.8 % (1.7-9.3); NEUTROPHILS # (AUTO) 6.1 K/uL (1.8-7.7); NEUTROPHILS % (AUTO) 76.3 % (40.0-70.0); PLATELET COUNT (AUTO) 185 K/uL (130-430); RED BLOOD CELL COUNT(AUTO) 5.31 MIL/uL (4.2-6.2); RED CELL DISTRIBUTION WIDTH 16.7 % (9.0-15.0); WHITE BLOOD COUNT (AUTO) 7.9 K/uL (4.8-10.8)
--- NOTE | 2021-12-13 00:27 | NUR ---
EKG performed at by Ashley VILLEGAS. Physician given copy of EKG for review.
[2021-12-13 00:38] LABS: ANION GAP 14 (5-15); CALCIUM 9.6 mg/dL (8.4-11.0); CHLORIDE 103 mmol/L (98-107); CREATININE 1.13 mg/dL (0.55-1.30); GLUCOSE 60 mg/dL (70-99); UREA NITROGEN, BLOOD 16 mg/dL (8-21)
[2021-12-13 00:40] LABS: BILIRUBIN,URINE NEGATIVE (NEGATIVE); BLOOD, URINE 1+ (NEGATIVE); CLARITY/URINE CLEAR (CLEAR); COLOR,URINE YELLOW (YELLOW); GLUCOSE,URINE 3+ (NEGATIVE); KETONES,URINE NEGATIVE (NEGATIVE); LEUKOCYTE ESTERASE ,URINE NEGATIVE (NEGATIVE); NITRITE, URINE NEGATIVE (NEGATIVE); PH,URINE 5.5 (5.0-8.0); PROTEIN URINE TRACE (NEGATIVE); UROBILINOGEN,URINE 0.2 (0.2-1.0)
[2021-12-13 00:44] LABS: ALANINE AMINOTRANSFERASE 13 U/L (12-78); ALBUMIN 3.9 g/dL (3.4-4.8); ASPARTATE AMINOTRANSFERASE 26 U/L (10-37); TOTAL BILIRUBIN 0.4 mg/dL (0.0-1.0)
--- NOTE | 2021-12-13 00:50 | NUR ---
Covid swab done and sent to lab.
[2021-12-13 00:56] LABS: BACTERIA,URINE None Seen /HPF (None Seen); HYALINE CASTS, URINE 0-10 /LPF (None Seen); MUCUS,URINE 1+ /LPF (None Seen); RBC,URINE 0-3 /HPF (0-3); WBC,URINE NONE SEEN /HPF (0-3)
[2021-12-13] MEDS ORDERED: NACL 0.9% 2,700 ML IV ONE (01:00)
[2021-12-13] MEDS ORDERED: cefTRIAXone 1 GM IVPB PREMIX 50 ML IV ONE (01:00)
--- NOTE | 2021-12-13 01:27 | NUR ---
# 22 gauge angiocath placed to left wrist. Use of asceptic technique. Opsite placed over site. Blood return noted. Flushed with 10 cc of normal saline. No evidence of infiltration noted. Patient tolerated well.
--- NOTE | 2021-12-13 02:10 | NUR ---
vacuum technician at bedside.
--- NOTE | 2021-12-13 02:49 | NUR ---
[facility] number is [phone].
--- NOTE | 2021-12-13 04:42 | NUR ---
Pt in bed resting with no s/s of distress. Pt is A&Ox4. Skin intact. VSS. Still currently waiting for Dr. Ornelas to call back for admission orders.
--- NOTE | 2021-12-13 05:00 | NUR ---
Admit bed requested Patient will be admitted to care of . Admitted to MedSurg unit. Diagnosis Hypoglycemia Inpatient (Yes or No) Yes Observation (Yes or No) No Orientation concerns or request close to nursing station (Yes or No) No Covid Status Negative On vent or bipap No Isolation requirements No Needs a sitter No From Home (Yes or if No enter name of facility) Yes Requires Dialysis (Yes or No) No Med Rec Completed (Yes of No) Yes
--- NOTE | 2021-12-13 06:08 | NUR ---
Patient will be admitted to care of Dr. Ornelas. Admitted to MedSurg unit. Will go to room 106A. Belongings list completed. Complete and up to date summary report printed. SBAR report to be given at bedside with opportunity for questions.
[2021-12-13 06:52] VITALS: BP_SYST 137
[2021-12-13 18:30] VITALS: BP_SYST 124
--- NOTE | 2021-12-13 19:25 | NUR ---
[facility] IS HERE TO PICK THE PT UP. PT IS ABLE TO AMBULATE SAFELY. ALERT AND ORIENTED X4. DENIES ANY PAIN OR DIZZINESS. EDUCATED PT ABOUT THE IMPORTANCE OF CHECKING HIS BLOOD SUGAR BEFORE EACH INSULIN ADMINISTRATION. PT VERBALIZED UNDERSTANDING. PT WILL F/U WITH PCP IN 1 WEEK. STABLE AT DISCHARGE.
--- NOTE | 2021-12-14 08:22 | NUR ---
Dispo code 01
== END 2021-12-13 19:50 | disposition home or self-care (01) | DRG 640 ==
LOC: SED 23:54 → SMU 12-13 05:01
PROVIDERS: ADMIT Internal Medicine; ATTEND Internal Medicine
DX: E16.2 Hypoglycemia, unspecified (principal); G93.41 Metabolic encephalopathy; E87.20 Acidosis, unspecified; Z20.822 Contact with and (suspected) exposure to COVID-19; Z88.0 Allergy status to penicillin
CPT/HCPCS: 36415; 71045; 80053; 81000; 82962; 83605; 85025; 87040; 93005; 96365; 96367; 99291; J0696; J1956; J7040

== ENCOUNTER 2022-06-28 14:27 | Inpatient (IN) | payer OTHER ==
[~2022-06-28] VITALS: Ht 185.4 cm; Wt 96.6 kg
[2022-06-28 14:27] VITALS: BP_SYST 143
[~2022-06-28 14:27] MED LIST changes: -AMIO100T4 PO; +CHOL500052 PO; -CYM30 PO; -FURO-150 PO; +FURO80TA86 PO; -HYDR-3917 PO; -IPRA3AMP9 INH; -LACT1CAP72 PO; -LEVO-62 PO; +LIP10 PO; -LIP20 PO; -METR500T PO; -POTA10TA15 PO
[2022-06-28 15:23] LABS: BASOPHILS # (AUTO) 0.1 K/uL (0.0-0.2); BASOPHILS % (AUTO) 0.9 % (0.0-2.0); EOSINOPHILS # (AUTO) 0.5 K/uL (0.0-0.4); EOSINOPHILS % (AUTO) 4.9 % (0.0-4.0); HEMATOCRIT 38.8 % (36-54); HEMOGLOBIN 12.8 g/dL (14.0-18.0); LYMPHOCYTES # (AUTO) 0.8 K/uL (1.0-5.5); LYMPHOCYTES % (AUTO) 8.8 % (20.5-51.5); MEAN CORPUSCULAR HEMOGLOBIN 26 pg (27-31); MEAN CORPUSCULAR HGB CONC 33 % (32-36); MEAN CORPUSCULAR VOLUME 79 fL (79.0-98.0); MONOCYTES # (AUTO) 0.6 K/uL (0.0-1.0); MONOCYTES % (AUTO) 6.8 % (1.7-9.3); NEUTROPHILS # (AUTO) 7.3 K/uL (1.8-7.7); NEUTROPHILS % (AUTO) 78.6 % (40.0-70.0); PLATELET COUNT (AUTO) 167 K/uL (130-430); RED CELL DISTRIBUTION WIDTH 17.3 % (9.0-15.0); WHITE BLOOD COUNT (AUTO) 9.3 K/uL (4.8-10.8)
[2022-06-28 15:54] LABS: ANION GAP 10 (5-15); CALCIUM 8.6 mg/dL (8.4-11.0); CHLORIDE 105 mmol/L (98-107); CREATININE 1.33 mg/dL (0.55-1.30); GLUCOSE 68 mg/dL (70-99); UREA NITROGEN, BLOOD 17 mg/dL (8-21)
[2022-06-28 16:04] LABS: BILIRUBIN,URINE NEGATIVE (NEGATIVE); CLARITY/URINE CLEAR (CLEAR); COLOR,URINE YELLOW (YELLOW); GLUCOSE,URINE 1+ (NEGATIVE); KETONES,URINE NEGATIVE (NEGATIVE); LEUKOCYTE ESTERASE ,URINE NEGATIVE (NEGATIVE); NITRITE, URINE NEGATIVE (NEGATIVE); PROTEIN URINE 1+ (NEGATIVE); UROBILINOGEN,URINE 0.2 (0.2-1.0)
[2022-06-28 16:07] LABS: BLOOD, URINE TRACE (NEGATIVE)
[2022-06-28 16:08] LABS: ALANINE AMINOTRANSFERASE 37 U/L (12-78); ALBUMIN 3.3 g/dL (3.4-4.8); ASPARTATE AMINOTRANSFERASE 26 U/L (10-37); DIGOXIN 0.2 ng/mL (0.80-2.00); TOTAL BILIRUBIN 1.1 mg/dL (0.0-1.0)
[2022-06-28 16:14] LABS: BACTERIA,URINE None Seen /HPF (None Seen); MUCUS,URINE 1+ /LPF (None Seen); RBC,URINE 0-3 /HPF (0-3); WBC,URINE 0-3 /HPF (0-3)
[2022-06-28] MEDS ORDERED: ASPIRIN 325 MG TABLET PO ONE (16:30)
[2022-06-28] MEDS ORDERED: FUROSEMIDE 40 MG/4 ML VIAL IVP ONE (16:30)
[2022-06-28 16:32] LABS: HYALINE CASTS, URINE 0-10 /LPF (None Seen)
[2022-06-28] MEDS ORDERED: D5/0.45 NS 1,000 ML IV SCH (19:00)
[2022-06-28] MEDS ORDERED: metroNIDAZOLE 500 mg/NS 100 ML IV ONE ×2 (19:15→23:51)
[2022-06-28] MEDS ORDERED: TAMSULOSIN HCL 0.4 MG CAP PO SCH (21:00)
[2022-06-28] MEDS ORDERED: INSULIN GLARGINE 100 UNITS/ML, 10 ML VIAL SQ SCH (21:00)
[2022-06-28 21:45] VITALS: BP_SYST 121
[2022-06-28] MEDS ORDERED: AMPICILLIN SODIUM/SULBACTAM NA 1.5 GM VIAL IM SCH (22:00)
[2022-06-28] MEDS: CARVEDILOL 12.5 MG TABLET (COREG) PO SCH (22:54)
[2022-06-28] MEDS: SACUBITRIL/VALSARTAN 24 MG-26 MG 1 TABLET PO SCH (22:55)
[2022-06-28] MEDS: APIXABAN 2.5 MG TABLET PO SCH (22:58)
[2022-06-29] VITALS: BP_SYST 112
[2022-06-29] MEDS ORDERED: D5W 1,000 ML IV PRN
[2022-06-29] MEDS ORDERED: ACETAMINOPHEN 325 MG TABLET PO PRN ×2
[2022-06-29] MEDS ORDERED: TEMAZEPAM 7.5 MG CAPSULE PO PRN
[2022-06-29] MEDS ORDERED: GLUCOSE (DEXTROSE) ORAL GEL -Adults PO PRN
[2022-06-29] MEDS ORDERED: DEXTROSE 50% JECT 50 ML DISP.SYRIN IVP PRN
[2022-06-29 08:26] LABS: ALANINE AMINOTRANSFERASE 20 U/L (12-78); ALBUMIN 2.9 g/dL (3.4-4.8); ANION GAP 10 (5-15); ASPARTATE AMINOTRANSFERASE 30 U/L (10-37); CALCIUM 8.2 mg/dL (8.4-11.0); CHLORIDE 106 mmol/L (98-107); CREATININE 1.22 mg/dL (0.55-1.30); GLUCOSE 170 mg/dL (70-99); UREA NITROGEN, BLOOD 16 mg/dL (8-21)
[2022-06-29] MEDS ORDERED: FINASTERIDE 5 MG TABLET (PROSCAR) PO SCH (09:00)
[2022-06-29] MEDS ORDERED: DIGOXIN 0.25 MG TABLET PO SCH (09:00)
[2022-06-29] MEDS ORDERED: SPIRONOLACTONE 25 MG TABLET (ALDACTONE) PO SCH (09:00)
[2022-06-29] MEDS ORDERED: FUROSEMIDE 80 MG TABLET PO SCH (09:00)
[2022-06-29] MEDS ORDERED: ATORVASTATIN 10 MG TABLET PO SCH (09:00)
[2022-06-29] MEDS: CARVEDILOL 12.5 MG TABLET (COREG) PO SCH (09:16)
[2022-06-29] MEDS: SACUBITRIL/VALSARTAN 24 MG-26 MG 1 TABLET PO SCH (09:16)
[2022-06-29] MEDS: APIXABAN 2.5 MG TABLET PO SCH (09:20)
[2022-06-29] MEDS ORDERED: INSU100V9 SQ (10:14)
[2022-06-29 10:23] VITALS: BP_SYST 113
== END 2022-06-29 10:50 | disposition home or self-care (01) | DRG 444 ==
LOC: SED 14:27 → SMU 18:39
PROVIDERS: ADMIT Specialist; ATTEND Specialist
DX: K80.20 Calculus of gallbladder without cholecystitis without obstruction (principal); I50.23 Acute on chronic systolic (congestive) heart failure; E44.1 Mild protein-calorie malnutrition; I24.8 Other forms of acute ischemic heart disease; I42.0 Dilated cardiomyopathy; E11.649 Type 2 diabetes mellitus with hypoglycemia without coma; E11.42 Type 2 diabetes mellitus with diabetic polyneuropathy; Z86.73 Personal history of transient ischemic attack (TIA), and cerebral infarction without residual deficits; Z90.49 Acquired absence of other specified parts of digestive tract; Z95.810 Presence of automatic (implantable) cardiac defibrillator; Z88.0 Allergy status to penicillin; R79.89 Other specified abnormal findings of blood chemistry
CPT/HCPCS: 36415; 71045; 76376; 76700-TC; 80053; 80162; 81000; 82962; 83880; 84484; 85025; 93005; 96361; 96374; 99291; J1815; J1940; J3490